=== PATIENT | male | born 1980 | race African-American/Black ===

== ENCOUNTER 2023-11-01 05:15 | Inpatient (IN) | payer MEDICAID, SELFPAY ==
[2023-11-01] MEDS: Ondansetron 4 MG/2 ML VIAL (05:35)
--- NOTE | 2023-11-01 06:42 | NUR.NOTE ---
Nursing Note: See downtime paperwork
--- NOTE | 2023-11-01 06:42 | NUR.NOTE ---
Nursing Note: See downtime paperwork
[2023-11-01 06:47] LABS: BUN 53 mg/dL (7-18); Calcium 10.4 mg/dL (8.5-10.1); Glucose 141 mg/dL (74-106)
[2023-11-01 06:48] LABS: Albumin 4.9 g/dL (3.4-5.0); Alkaline Phosphatase 116 U/L (46-116); Bilirubin, Total 0.9 mg/dL (0.2-1.0); CREATININE 7.4 mg/dL (0.70-1.30); Estimated GFR 8.78 (mL/min/1.73m2); Total Protein 11.3 g/dL (6.4-8.2)
[2023-11-01 06:49] LABS: ALT 30 U/L (16-63); AST 30 U/L (15-37); Anion Gap 14.7 mmol/L (3-11); CO2 29.3 mmol/L (21.0-32.0); Chloride 92 mmol/L (98-107); Lipase 36 U/L (16-77); Magnesium 2.7 mg/dL (1.8-2.4); Potassium 4.1 mmol/L (3.5-5.1); Sodium 136 mmol/L (136-145)
[2023-11-01 06:51] LABS: HCT 53.5 % (40.0-50.0); RBC 7.43 10^6/uL (4.36-5.78); WBC 9.87 10^3/uL (4.4-10.8)
[2023-11-01 06:52] LABS: HGB 17.9 g/dL (13.5-17.5); MCH 24.1 pg (27.0-33.0); MCHC 33.5 % (32.0-36.0); MCV 72 fL (80-95); Platelet Count 350 10^3/uL (130-400); RDW 17.5 % (11.8-14.1); RDW-SD 38.9 fL
[2023-11-01 06:53] LABS: Abs Immature Grans 0.05 10^3/uL (0.0-0.06); Absolute Basophil Count 0.07 10^3/uL (0.0-0.2); Absolute Eosinophil Count 0.01 10^3/uL (0.0-0.7); Absolute Lymphocyte Count 3.38 10^3/uL (1.2-3.4); Absolute Monocyte Count 1.16 10^3/uL (0.1-0.8); Basophils % 0.7; Eosinophils % 0.1; Immature Grans % 0.5; Lymphocytes % 34.2; MPV 9.5 fL (8.0-11.0); Monocytes % 11.8; Neutrophils % 52.7
[2023-11-01 06:54] LABS: Diff Comment RBC Morph Reviewed; Microcytosis 2+
--- NOTE | 2023-11-01 07:03 | ED.GENADUL_ITS ---
HPI General Date/Time Provider Initiated Documentation: 11/01/23 06:38 . HPI Narrative: 43-year-old -[place]inames[place] male with a past medical history of hypertension for which he used to take losartan, as well as bipolar, and other mental health problems who states he has not taken any of his medications for over a year, who presents today for vomiting and dehydration. Initially the patient was seen on downtime, please refer to downtime documentation. Patient's history appears to be somewhat inconsistent, and he is stating different things to nurses and myself. However to me he states that about a week ago he saw some friends and subsequently did crack and meth, and since then he has been vomiting multiple times every day. He denies any blood in his vomitus. He denies any diarrhea. He states that he has not been able to keep anything down for the last few days. He has not been able to drink or eat at all. He admits to occasional abdominal cramping, but no patent. He does state that he drinks occasionally, but did not drink at all for the few days prior to this episode of drugs. He also states that he usually does not do drugs. Additionally the patient states that once in [place] he was admitted to the hospital for being very dehydrated and having some kidney problems that got better he denies any other complaints. He denies any other modifying factors. He states that he has been urinating, but it has been less than normal. He is not able to give additional specifics. Review of Systems All systems reviewed & are unremarkable except as noted in HPI and below Exam Narrative Exam Narrative: 1.Const: Well-nourished, Well-developed, appearing stated age 2.Eyes: PERRL, no conjunctival injection, and symmetrical lids. 3.ENT: Atraumatic external nose and ears. Notably dry MM. Neck: Symmetric, trachea midline, No thyromegaly. 4.CVS: +S1/S2, No murmurs or gallops. Peripheral pulses 2+ and equal in all extremities. Brisk capillary refill in all extremities. 5.RESP: Unlabored respiratory effort. Clear to auscultation bilaterally. No wheezes rales or rhonchi 6.GI: Soft, Nontender/Nondistended, No hepatosplenomegaly. No guarding or rebound. 7.MSK: Normocephalic/Atraumatic, Extremities w/o deformity or ttp No cyanosis or clubbing, Normal movement of all extremities 8.Skin: Warm, Dry. No rashes or lesions. 9.Neuro: bit sharpener II-XII grossly intact. Sensation grossly intact, no focal neurologic deficits. 10.Psych: (AAO) x3. Appropriate mood and affect Course Lab/Test Results Lab/Test Results: Laboratory Tests Range/Units 11/01/23 05:30 WBC (4.4-10.8) 10^3/uL 9.87 RBC (4.36-5.78) 10^6/uL 7.43 H Hgb (13.5-17.5) g/dL 17.9 H Hct (40.0-50.0) % 53.5 H MCV (80-95) fL 72 L MCH (27.0-33.0) pg 24.1 L MCHC (32.0-36.0) % 33.5 RDW (11.8-14.1) % 17.5 H Plt Count (130-400) 10^3/uL 350 MPV (8.0-11.0) fL 9.5 Immature Gran % 0.5 Neutrophils % 52.7 Lymphocytes % 34.2 Monocytes % 11.8 Eosinophils % 0.1 Basophils % 0.7 Nucleated RBC % (0.0-0.3) % 0.0 Absolute Neutrophils (1.2-6.7) 10^3/uL 5.20 Absolute Lymphocytes (1.2-3.4) 10^3/uL 3.38 Absolute Monocytes (0.1-0.8) 10^3/uL 1.16 H Absolute Eosinophils (0.0-0.7) 10^3/uL 0.01 Absolute Basophils (0.0-0.2) 10^3/uL 0.07 RBC Morphology See Below Microcytosis 2+ Sodium (136-145) mmol/L 136 Potassium (3.5-5.1) mmol/L 4.1 Chloride (98-107) mmol/L 92 L Carbon Dioxide (21.0-32.0) mmol/L 29.3 Anion Gap (3-11) mmol/L 14.7 H BUN (7-18) mg/dL 53 H Creatinine (0.70-1.30) mg/dL 7.4 H* Est GFR (CKD-EPI 2020) (mL/min/1.73m2) 8.78 Glucose (74-106) mg/dL 141 H Calcium (8.5-10.1) mg/dL 10.4 H Magnesium (1.8-2.4) mg/dL 2.7 H Total Bilirubin (0.2-1.0) mg/dL 0.9 AST (15-37) U/L 30 ALT (16-63) U/L 30 Alkaline Phosphatase (46-116) U/L 116 Total Protein (6.4-8.2) g/dL 11.3 H Albumin (3.4-5.0) g/dL 4.9 Lipase (16-77) U/L 36 Medical Decision Making 43-year-old -[place]inames[place] male with a past medical history of hypertension for which he used to take losartan, as well as bipolar, and other mental health problems who states he has not taken any of his medications for over a year, who presents today for vomiting and dehydration. Initially the patient was seen on downtime, please refer to downtime documentation. Patient's history appears to be somewhat inconsistent, and he is stating different things to nurses and myself. However to me he states that about a week ago he saw some friends and subsequently did crack and meth, and since then he has been vomiting multiple times every day. He denies any blood in his vomitus. He denies any diarrhea. He states that he has not been able to keep anything down for the last few days. He has not been able to drink or eat at all. He admits to occasional abdominal cramping, but no patent. He does state that he drinks occasionally, but did not drink at all for the few days prior to this episode of drugs. He also states that he usually does not do drugs. Additionally the patient states that once in [place] he was admitted to the hospital for being very dehydrated and having some kidney problems that got better he denies any other complaints. He denies any other modifying factors. He states that he has been urinating, but it has been less than normal. He is not able to give additional specifics. Physical exam demonstrates a tachycardic male, notably dry mucous membranes. Concern for dehydration, gastroenteritis, pancreatitis. Will rehydrate, monitor closely and reassess. 7:12 AM Patient received a liter of normal saline from EMS originally, and we have added an additional liter of lactated Ringer's. Patient is currently making urine. Laboratory workup demonstrates hemoglobin of 17.9 which is likely from hemoconcentration, electrolytes are normal, renal function demonstrates an elevated creatinine at 7.4, BUN of 53. Anion gap of 14.7. Glucose normal. Magnesium slightly high at 2.7. CK was ordered and this is 876, no evidence of rhabdo. Lipase normal. Patient is tolerating p.o. and has been able to drink 3 cups of fluid, he is urinated about 76 mL of bibiana-colored urine. No casts are visually appreciable. Pending urinalysis. I did contact hospitalist for admission for continued hydration. Dr. Talley does request a CT scan of the abdomen prior to admission. This will be ordered. Patient will be signed out to my colleague Dr. Hutchins for follow-up on CT imaging. We will add 1/3 L of fluids/lactated Ringer's. Quality:SDOH Health Related Social Needs: No Data to Display PFSH All Active Problems (Updated 11/01/23 @ 07:27 by Inderjit Arthur DO) Acute dehydration (Acute) Acute kidney injury (Acute) Social History Smoking risk assessment performed?: No Additional Social history: see downtime note Discharge Plan Discharge Details Chief Complaint: Nausea/Vomit/Diar Clinical Impression: Acute kidney injury, Acute dehydration ED Provider: Inderjit Arthur
--- NOTE | 2023-11-01 07:15 | DI.CT_ITS ---
Exam(s) CT ABDOMEN PELVIS WO EXAM: CT ABDOMEN PELVIS WO CLINICAL HISTORY: vomiting, renal failure. TECHNIQUE: Imaging Protocol: Axial computed tomography images with coronal and sagittal reformatted images were created and reviewed CONTRAST MATERIAL: Intravenous: none Oral: None COMPARISON: No exams were available for comparison FINDINGS: VISUALIZED LUNG BASES: No nodules nor pleural effusions evident. ABDOMEN: There is no ascites. LIVER: There are no obvious focal hepatic lesions evident of this noninfused study. GALLBLADDER/BILIARY: No obvious gallbladder pathology. CBD is not dilated. PANCREAS: No evidence of pancreatic mass nor dilatation of the pancreatic duct. SPLEEN: Spleen is not enlarged. No obvious intrasplenic lesions. Single tiny calcified granuloma in the spleen noted. ADRENALS: There are no significant adrenal masses. KIDNEYS:Both kidneys exhibit normal size. There are small 1-2 millimeter calculi seen in each kidney lower pole regions. There are no radiopaque calculi seen in the nondilated ureters and there is no hydronephrosis. No radiopaque calculi seen in the almost collapsed bladder.. ABDOMINAL AORTA: Abdominal aorta is not enlarged. LYMPH NODES: There is no retroperitoneal nor paraaortic adenopathy. ABDOMINAL WALL: No evidence of significant anterior abdominal wall nor inguinal hernia. GI: There is no evidence of bowel obstruction, free air, nor abscess. PELVIS: LYMPH NODES: There is no intrapelvic nor inguinal adenopathy. GI: No evidence of appendicitis.No evidence of sigmoid diverticulitis. URINARY BLADDER: No calculi nor obvious masses evident REPRODUCTIVE: Prostate size normal. Seminal vesicles unremarkable. OSSEOUS: No significant osseous lesions. No fractures IMPRESSION: 1. Bilateral nonobstructive nephrolithiasis. There are punctate calculi seen in the lower pole calic es of both kidneys. No hydronephrosis nor hydroureter. 2. No evidence of bowel obstruction, free air, nor abscess. Called by myself to ER for RADIATION DOSE DELIVERED: 571.89mGy.cm Total DLP DATA REPOSITORY: All CT scans at this facility are submitted to the National Radiology Data Registry (NRDR) Dose Index Registry (DIR) with the [employer] (ACR). RADIATION OPTIMIZATION: All CT scans at this facility use at least one of these dose optimization te chniques: automated exposure control; mA and/or kV adjustment per patient size (includes targeted exa ms where dose is matched to clinical indication); or iterative reconstruction.
[2023-11-01 07:16] VITALS: BP 168/102; PULSE 101; RESP 22; TEMP 36.4; O2SAT 100
[2023-11-01 07:18] LABS: Creatine Kinase 876 U/L (39-308)
[2023-11-01] MEDS: Lactated Ringers 1,000 ML 1000 ML IV (07:26)
[2023-11-01 07:34] LABS: Bilirubin Small (Negative); Blood Moderate (Negative); Clarity Cloudy (Clear); Glucose Negative (Negative); Ketones Trace mg/dL (Negative); Leukocyte Esterase Negative (Negative); Nitrite Negative (Negative); Specific Gravity >= 1.030 (1.005-1.025); Urobilinogen 0.2 mg/dL (Up to 0.2)
[2023-11-01 07:43] LABS: Epithelial Cells Rare HPF (Negative); WBC 0-2 HPF (0-5)
[2023-11-01 07:44] LABS: Bacteria Moderate HPF (Negative); Crystals Negative HPF (Negative); Mucus Moderate (Negative)
[2023-11-01 07:47] LABS: C & S Indicated? Yes
[2023-11-01] MEDS: Tamsulosin 0.4 MG CAPCR PO (07:51)
[2023-11-01 07:52] LABS: *AMPHETAMINES SCREEN URINE Negative (Negative); *BARBITURATES SCREEN URINE Negative (Negative); *BENZODIAZEPINES SCREEN URINE Negative (Negative); Cannabinoids THC Positive (Negative); Cocaine Screen,Urine Positive (Negative); METHADONE URINE SCREEN Negative (Negative); OPIATES URINE SCREEN Negative (Negative)
[2023-11-01 07:53] LABS: Tricyclic Antidepressants Negative (Negative)
--- NOTE | 2023-11-01 08:58 | HPE_ITS ---
Date of service: 11/01/23 Time of Service: 08:58 [facility] All Active Problems (Updated 11/01/23 @ 07:27 by Inderjit Arthur DO) Acute dehydration (Acute) Acute kidney injury (Acute) Social History Smoking risk assessment performed?: No Additional Social history: see downtime note Results Labs 11/01/23 05:30 11/01/23 05:30 Labs: Laboratory Results - last 24 hr 11/01/23 11/01/23 05:30 07:15 WBC 9.87 RBC 7.43 H Hgb 17.9 H Hct 53.5 H MCV 72 L MCH 24.1 L MCHC 33.5 RDW 17.5 H Plt Count 350 MPV 9.5 Immature Gran % 0.5 Neutrophils % 52.7 Lymphocytes % 34.2 Monocytes % 11.8 Eosinophils % 0.1 Basophils % 0.7 Nucleated RBC % 0.0 Absolute Neutrophils 5.20 Absolute Lymphocytes 3.38 Absolute Monocytes 1.16 H Absolute Eosinophils 0.01 Absolute Basophils 0.07 RBC Morphology See Below Microcytosis 2+ Sodium 136 Potassium 4.1 Chloride 92 L Carbon Dioxide 29.3 Anion Gap 14.7 H BUN 53 H Creatinine 7.4 H* Est GFR (CKD-EPI 2020) 8.78 Glucose 141 H Calcium 10.4 H Magnesium 2.7 H Total Bilirubin 0.9 AST 30 ALT 30 Alkaline Phosphatase 116 Creatine Kinase 876 H Total Protein 11.3 H Albumin 4.9 Lipase 36 Urine Color Yellow Urine Clarity Cloudy Urine pH 5.0 Ur Specific [place] >= 1.030 H Urine Protein 100 H Urine Ketones Trace H Urine Blood Moderate H Urine Nitrite Negative Urine Bilirubin Small H Urine Urobilinogen 0.2 Ur Leukocyte Esterase Negative Urine RBC 10-20 H Urine WBC 0-2 Ur Epithelial Cells Rare Urine Crystals Negative Urine Bacteria Moderate Urine Casts Urine Mucus Moderate Ur Culture Indicated? Yes Urine Glucose Negative Urine Opiates Screen Negative Urine Methadone Screen Negative Ur Barbiturates Screen Negative Ur Tricyclics Screen Negative Ur Amphetamines Screen Negative U Benzodiazepines Scrn Negative Urine Cocaine Screen Positive A Ur THC Screen Positive A Last Vital Signs Temp 36.4 C L 11/01/23 07:16 Pulse 101 H 11/01/23 07:16 Resp 22 11/01/23 07:16 BP 168/102 H 02/08/24 07:16 Pulse Ox 100 11/01/23 07:16
[2023-11-01 09:11] LABS: COVID-19 PCR Negative (Negative); Influenza A PCR Negative (Negative); Influenza B PCR Negative (Negative); RSV PCR Negative (Negative)
[2023-11-01 09:17] LABS: Source Nasopharynx
[2023-11-01 10:01] VITALS: BP 156/86; PULSE 80; RESP 12; TEMP 36.9; O2SAT 99
[2023-11-01 10:30] VITALS: BP 156/86; PULSE 80; RESP 12; TEMP 36.9; O2SAT 99
[2023-11-01] MEDS: Heparin 5,000 UNITS/ML VIAL 5000 UNITS SC ×2 (11:26→17:46)
[2023-11-01] MEDS: Lactated Ringers 1,000 ML 250 ML IV ×3 (11:33→23:41)
[2023-11-01] MEDS: Normal Saline Flush 10 ML SYR IVP ×2 (11:33→20:08)
[2023-11-01 12:37] LABS: Anion Gap 10.6 mmol/L (3-11); BUN 45 mg/dL (7-18); CO2 28.4 mmol/L (21.0-32.0); Calcium 9.4 mg/dL (8.5-10.1); Chloride 98 mmol/L (98-107); Estimated GFR 17.84 (mL/min/1.73m2); Glucose 156 mg/dL (74-106); Potassium 3.6 mmol/L (3.5-5.1); Sodium 137 mmol/L (136-145)
[2023-11-01 12:39] LABS: CREATININE 4.1 mg/dL (0.70-1.30)
--- NOTE | 2023-11-01 14:00 | UCONE_ITS ---
Date of service: 11/01/23 Time of Service: 15:48 Assessment and Plan Assessment and plan (1) Acute kidney injury: Status: Acute (2) Kidney stones: Assessment and plan: I do not believe his kidney stones are causing any of his acute renal insufficiency, but they certainly should be watched over time. I suspect his biggest risk factor for developing the stones are his recurrent episodes of dehydration. The microscopic hematuria identified when he was in the emergency department certainly could be related to his stones or to his dehydration. I do not believe he requires any specific workup right now. I would recommend that we follow him in the office after discharge. We would plan to recheck a urinalysis to make sure the hematuria has resolved. We would also make arrangements to follow his known kidney stones with a renal ultrasound in the office. History of Present Illness History of Present Illness Chief Complaint: Kidney stones Narrative: This is a 43-year-old gentleman who was admitted through the emergency room earlier this morning with dehydration and an elevated serum creatinine. The patient tells me that he had a previous episode of dehydration requiring hospitalization when he was living back in [place] in 2017. His renal function improved with IV hydration alone. He is now living in [place] and he admits to taking some street drugs recently. He then developed nausea and vomiting and was unable to keep any fluid or food down. When he presented to the emergency department, his serum creatinine was over 7. He does have a history of hypertension but no known chronic renal disease. He has never had any type of renal surgery. He has not seen any gross hematuria. He has no known history of urinary tract infections. At the time of his admission, a noncontrast CT of the abdomen and pelvis was obtained. Nonobstructing kidney stones were identified. Review of Systems Narrative: No fevers or chills No vision change or dysphasia No diabetes or thyroid dysfunction No shortness of breath, cough or hemoptysis No chest pain or palpitations No hepatitis, ulcers, jaundice, diarrhea or constipation Bipolar disorder. No seizures, strokes or peripheral neuropathy No bleeding disorders or anemia No gout PFSH All Active Problems (Updated 11/03/23 @ 00:01 by NABILA SUERO) Acute dehydration (Acute) Acute kidney injury (Acute) Medical History (Updated 11/03/23 @ 00:01 by NABILA SUERO) Kidney stones Social History (Reviewed 11/01/23 @ 07:09 by JAZ Batista Smoking/Tobacco Use Status: Current every day Smoking risk assessment performed?: Yes Housing: other Additional Social history: see downtime note Exam Narrative Exam Narrative: He appears comfortable His vital signs are documented elsewhere His abdomen is soft with no mass. There is no CVA tenderness He is awake and alert His urinalysis at the time of admission showed very concentrated urine with microscopic hematuria Results Last Vital Signs Temp 36.9 C 11/01/23 10:30 Pulse 80 11/01/23 10:30 Resp 12 11/01/23 10:30 BP 156/86 H 11/01/23 10:30 Pulse Ox 99 11/01/23 10:30 Labs 11/02/23 06:30 11/02/23 06:30 Labs: Laboratory Results - last 24 hr 11/01/23 11/01/23 11/01/23 05:30 07:15 07:57 WBC 9.87 RBC 7.43 H Hgb 17.9 H Hct 53.5 H MCV 72 L MCH 24.1 L MCHC 33.5 RDW 17.5 H Plt Count 350 MPV 9.5 Immature Gran % 0.5 Neutrophils % 52.7 Lymphocytes % 34.2 Monocytes % 11.8 Eosinophils % 0.1 Basophils % 0.7 Nucleated RBC % 0.0 Absolute Neutrophils 5.20 Absolute Lymphocytes 3.38 Absolute Monocytes 1.16 H Absolute Eosinophils 0.01 Absolute Basophils 0.07 RBC Morphology See Below Microcytosis 2+ Sodium 136 Potassium 4.1 Chloride 92 L Carbon Dioxide 29.3 Anion Gap 14.7 H BUN 53 H Creatinine 7.4 H* Est GFR (CKD-EPI 2020) 8.78 Glucose 141 H Calcium 10.4 H Magnesium 2.7 H Total Bilirubin 0.9 AST 30 ALT 30 Alkaline Phosphatase 116 Creatine Kinase 876 H Total Protein 11.3 H Albumin 4.9 Lipase 36 Urine Color Yellow Urine Clarity Cloudy Urine pH 5.0 Ur Specific [place] >= 1.030 H Urine Protein 100 H Urine Ketones Trace H Urine Blood Moderate H Urine Nitrite Negative Urine Bilirubin Small H Urine Urobilinogen 0.2 Ur Leukocyte Esterase Negative Urine RBC 10-20 H Urine WBC 0-2 Ur Epithelial Cells Rare Urine Crystals Negative Urine Bacteria Moderate Urine Casts Urine Mucus Moderate Ur Culture Indicated? Yes Urine Glucose Negative Urine Opiates Screen Negative Urine Methadone Screen Negative Ur Barbiturates Screen Negative Ur Tricyclics Screen Negative Ur Amphetamines Screen Negative U Benzodiazepines Scrn Negative Urine Cocaine Screen Positive A Ur THC Screen Positive A COVID-19 Source Nasopharynx SARS-CoV-2 (PCR) Negative Influenza Type A (PCR) Negative Influenza Type B (PCR) Negative RSV (PCR) Negative 11/01/23 12:18 WBC RBC Hgb Hct MCV MCH MCHC RDW Plt Count MPV Immature Gran % Neutrophils % Lymphocytes % Monocytes % Eosinophils % Basophils % Nucleated RBC % Absolute Neutrophils Absolute Lymphocytes Absolute Monocytes Absolute Eosinophils Absolute Basophils RBC Morphology Microcytosis Sodium 137 Potassium 3.6 Chloride 98 Carbon Dioxide 28.4 Anion Gap 10.6 BUN 45 H Creatinine 4.1 H* D Est GFR (CKD-EPI 2020) 17.84 Glucose 156 H Calcium 9.4 Magnesium Total Bilirubin AST ALT Alkaline Phosphatase Creatine Kinase Total Protein Albumin Lipase Urine Color Urine Clarity Urine pH Ur Specific [place] Urine Protein Urine Ketones Urine Blood Urine Nitrite Urine Bilirubin Urine Urobilinogen Ur Leukocyte Esterase Urine RBC Urine WBC Ur Epithelial Cells Urine Crystals Urine Bacteria Urine Casts Urine Mucus Ur Culture Indicated? Urine Glucose Urine Opiates Screen Urine Methadone Screen Ur Barbiturates Screen Ur Tricyclics Screen Ur Amphetamines Screen U Benzodiazepines Scrn Urine Cocaine Screen Ur THC Screen COVID-19 Source SARS-CoV-2 (PCR) Influenza Type A (PCR) Influenza Type B (PCR) RSV (PCR) Imaging Abdomen CT scan report/results: image reviewed Additional studies: His serum creatinine is improving with aggressive rehydration. Imaging Studies: I reviewed his CT of the abdomen and pelvis. I do not see any sign of hydronephrosis. He does have nonobstructing bilateral kidney stones. His renal parenchyma appears well-preserved.
[2023-11-01 15:40] VITALS: BP 133/84; PULSE 77; RESP 17; TEMP 36.7; O2SAT 98
--- NOTE | 2023-11-01 19:06 | W.PM.HP.N ---
Date of service: 11/01/23 Time of Service: 19:07 Assessment and Plan Assessment and plan (1) Acute dehydration: Status: Acute Assessment and plan: N/V has subsided Continue IVF Ondansetron PRN (2) Kidney stones: Status: Chronic Assessment and plan: Seen by Dr Yates - not acute, will follow up out patient (3) Acute kidney injury: Status: Acute Assessment and plan: Improving with IVF Cr down to 4.1 form 7.4 check again at 2030h Continue IVF - LR 250ml/h History of Present Illness History of Present Illness Chief Complaint: Nausea, vomiting Narrative: This is a 43-year-old -[place] male with a past medical history significant for but not limited to hypertension for which he used to take losartan, bipolar, and other mental health problems presented to the [facility] ED for evaluation of vomiting and dehydration. He reported to the ED provider he saw some friends about a week ago and subsequently did crack and meth, and since then he has been vomiting multiple times every day. He denied any blood in his vomitus. He denied any diarrhea. He stated he has not been able to keep anything down for the last few days. Denied alcohol or other drugs. He reported in the past he was dehydrated, hospitalized, had some kidney problems and everything improved with hydration. He reported he has been urinating, but it has been less than normal. Laboratory workup demonstrates hemoglobin of 17.9 which is likely from hemoconcentration, electrolytes are normal, renal function demonstrates an elevated creatinine at 7.4, BUN of 53. Anion gap of 14.7. Glucose normal. Magnesium slightly high at 2.7. CK was ordered and this is 876, no evidence of rhabdo. Lipase normal. Patient is tolerated PO fluids. CT of abd/pelvis: bilateral nonobstructive nephrolithiasis, there are punctate calculi seen in the lower pole calices of both kidneys. No hydronephrosis nor hydroureter. No evidence of bowel obstruction, free air, or abscess. Patient was admitted to the medical floor for further testing and continued hydration and treatment. Patient is a full code. Review of Systems All systems reviewed & are unremarkable except as noted in HPI and below PFSH All Active Problems (Updated 11/01/23 @ 16:23 by Tito Yates MD) Kidney stones (Chronic) Acute dehydration (Acute) Acute kidney injury (Acute) Social History Smoking/Tobacco Use Status: Current every day Smoking risk assessment performed?: Yes Housing: other Additional Social history: see downtime note Meds Allergies and Home Medications Allergies Allergy/AdvReac Type Severity Reaction Status Date / Time lisinopril Allergy Severe Swelling/Ed Unverified 11/01/23 09:24 reagan Home Medications Medication Instructions Recorded Confirmed Type Unknown [No Known Home Meds] 11/01/23 11/01/23 History Exam Narrative Exam Narrative: 1.Const: Well-nourished, Well-developed, appearing stated age 2.Eyes: PERRL, no conjunctival injection, and symmetrical lids. 3.ENT: Atraumatic external nose and ears. Notably dry MM. Neck: Symmetric, trachea midline, No thyromegaly. 4.CVS: +S1/S2, No murmurs or gallops. Peripheral pulses 2+ and equal in all extremities. Brisk capillary refill in all extremities. 5.RESP: Unlabored respiratory effort. Clear to auscultation bilaterally. No wheezes rales or rhonchi 6.GI: Soft, Nontender/Nondistended, No hepatosplenomegaly. No guarding or rebound. 7.MSK: Normocephalic/Atraumatic, Extremities w/o deformity or ttp No cyanosis or clubbing, Normal movement of all extremities 8.Skin: Warm, Dry. No rashes or lesions. 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 Sensation grossly intact, no focal neurologic deficits. 10.Psych: (AAO) x3. Appropriate mood and affect Results Labs 11/01/23 05:30 11/01/23 12:18 Labs: Laboratory Results - last 24 hr 11/01/23 11/01/23 11/01/23 05:30 07:15 07:57 WBC 9.87 RBC 7.43 H Hgb 17.9 H Hct 53.5 H MCV 72 L MCH 24.1 L MCHC 33.5 RDW 17.5 H Plt Count 350 MPV 9.5 Immature Gran % 0.5 Neutrophils % 52.7 Lymphocytes % 34.2 Monocytes % 11.8 Eosinophils % 0.1 Basophils % 0.7 Nucleated RBC % 0.0 Absolute Neutrophils 5.20 Absolute Lymphocytes 3.38 Absolute Monocytes 1.16 H Absolute Eosinophils 0.01 Absolute Basophils 0.07 RBC Morphology See Below Microcytosis 2+ Sodium 136 Potassium 4.1 Chloride 92 L Carbon Dioxide 29.3 Anion Gap 14.7 H BUN 53 H Creatinine 7.4 H* Est GFR (CKD-EPI 2020) 8.78 Glucose 141 H Calcium 10.4 H Magnesium 2.7 H Total Bilirubin 0.9 AST 30 ALT 30 Alkaline Phosphatase 116 Creatine Kinase 876 H Total Protein 11.3 H Albumin 4.9 Lipase 36 Urine Color Yellow Urine Clarity Cloudy Urine pH 5.0 Ur Specific [place] >= 1.030 H Urine Protein 100 H Urine Ketones Trace H Urine Blood Moderate H Urine Nitrite Negative Urine Bilirubin Small H Urine Urobilinogen 0.2 Ur Leukocyte Esterase Negative Urine RBC 10-20 H Urine WBC 0-2 Ur Epithelial Cells Rare Urine Crystals Negative Urine Bacteria Moderate Urine Casts Urine Mucus Moderate Ur Culture Indicated? Yes Urine Glucose Negative Urine Opiates Screen Negative Urine Methadone Screen Negative Ur Barbiturates Screen Negative Ur Tricyclics Screen Negative Ur Amphetamines Screen Negative U Benzodiazepines Scrn Negative Urine Cocaine Screen Positive A Ur THC Screen Positive A COVID-19 Source Nasopharynx SARS-CoV-2 (PCR) Negative Influenza Type A (PCR) Negative Influenza Type B (PCR) Negative RSV (PCR) Negative 11/01/23 12:18 WBC RBC Hgb Hct MCV MCH MCHC RDW Plt Count MPV Immature Gran % Neutrophils % Lymphocytes % Monocytes % Eosinophils % Basophils % Nucleated RBC % Absolute Neutrophils Absolute Lymphocytes Absolute Monocytes Absolute Eosinophils Absolute Basophils RBC Morphology Microcytosis Sodium 137 Potassium 3.6 Chloride 98 Carbon Dioxide 28.4 Anion Gap 10.6 BUN 45 H Creatinine 4.1 H* D Est GFR (CKD-EPI 2020) 17.84 Glucose 156 H Calcium 9.4 Magnesium Total Bilirubin AST ALT Alkaline Phosphatase Creatine Kinase Total Protein Albumin Lipase Urine Color Urine Clarity Urine pH Ur Specific [place] Urine Protein Urine Ketones Urine Blood Urine Nitrite Urine Bilirubin Urine Urobilinogen Ur Leukocyte Esterase Urine RBC Urine WBC Ur Epithelial Cells Urine Crystals Urine Bacteria Urine Casts Urine Mucus Ur Culture Indicated? Urine Glucose Urine Opiates Screen Urine Methadone Screen Ur Barbiturates Screen Ur Tricyclics Screen Ur Amphetamines Screen U Benzodiazepines Scrn Urine Cocaine Screen Ur THC Screen COVID-19 Source SARS-CoV-2 (PCR) Influenza Type A (PCR) Influenza Type B (PCR) RSV (PCR) Last Vital Signs Temp 36.7 C 11/01/23 15:40 Pulse 77 11/01/23 15:40 Resp 17 11/01/23 15:40 BP 133/84 11/01/23 15:40 Pulse Ox 98 11/01/23 15:40 Time Spent Time spent with Patient: 55-74 minutes Time was spent: preparing to see the patient(eg.review tests), obtaining and/or reviewing separately otained hiistory, ordering medications,tests, procedures, referring, communicating with other health healthcare administrator, indepentently interpreting results, counseling the patient and care coordination
[2023-11-01 20:09] VITALS: BP 127/77; PULSE 83; RESP 18; TEMP 36.6; O2SAT 93
[2023-11-01 20:52] LABS: Anion Gap 7.1 mmol/L (3-11); BUN 36 mg/dL (7-18); CO2 30.9 mmol/L (21.0-32.0); CREATININE 2.3 mg/dL (0.70-1.30); Calcium 8.2 mg/dL (8.5-10.1); Chloride 100 mmol/L (98-107); Estimated GFR 35.69 (mL/min/1.73m2); Glucose 108 mg/dL (74-106); Potassium 3.6 mmol/L (3.5-5.1); Sodium 138 mmol/L (136-145)
[2023-11-02 00:27] VITALS: BP 116/81; PULSE 60; RESP 18; TEMP 36.6; O2SAT 99
[2023-11-02] MEDS: Heparin 5,000 UNITS/ML VIAL 5000 UNITS SC ×2 (03:01→10:56)
[2023-11-02 03:24] VITALS: BP 122/77; PULSE 67; RESP 18; TEMP 35.6; O2SAT 97
[2023-11-02] MEDS: Lactated Ringers 1,000 ML 250 ML IV ×2 (03:45→08:10)
[2023-11-02 07:42] LABS: Abs Immature Grans 0.01 10^3/uL (0.0-0.06); Absolute Basophil Count 0.03 10^3/uL (0.0-0.2); Absolute Eosinophil Count 0.07 10^3/uL (0.0-0.7); Absolute Lymphocyte Count 2.16 10^3/uL (1.2-3.4); Absolute Monocyte Count 0.61 10^3/uL (0.1-0.8); Absolute Neutrophil Count 2.15 10^3/uL (1.2-6.7); Basophils % 0.6; Eosinophils % 1.4; HCT 34.7 % (40.0-50.0); Immature Grans % 0.2; Lymphocytes % 42.9; MCH 24.1 pg (27.0-33.0); MCHC 33.1 % (32.0-36.0); MCV 73 fL (80-95); MPV 10.3 fL (8.0-11.0); Monocytes % 12.1; Neutrophils % 42.8; Platelet Count 212 10^3/uL (130-400); RBC 4.77 10^6/uL (4.36-5.78); RDW 15.5 % (11.8-14.1); RDW-SD 40.1 fL; WBC 5.03 10^3/uL (4.4-10.8)
[2023-11-02 07:49] LABS: HGB 11.5 g/dL (13.5-17.5)
[2023-11-02 07:54] LABS: Iron 140 ug/dL (65-175); Total Iron Binding Capacity 170 ug/dL (250-450); Transferrin Sat 82 % (20-55)
[2023-11-02 08:02] LABS: Diff Comment RBC Morph Reviewed; Microcytosis 2+
[2023-11-02 08:09] VITALS: BP 137/95; PULSE 66; RESP 20; TEMP 36; O2SAT 97
[2023-11-02 08:29] LABS: Anion Gap 2.6 mmol/L (3-11); BUN 21 mg/dL (7-18); CO2 34.4 mmol/L (21.0-32.0); CREATININE 1.3 mg/dL (0.70-1.30); Calcium 8.7 mg/dL (8.5-10.1); Chloride 104 mmol/L (98-107); Estimated GFR 70.78 (mL/min/1.73m2); Ferritin 172 ng/mL (26-388); Glucose 98 mg/dL (74-106); Magnesium 1.7 mg/dL (1.8-2.4); Sodium 141 mmol/L (136-145); Vitamin B12 902 pg/mL (193-986)
[2023-11-02 08:51] VITALS: BP 147/90; PULSE 69; RESP 17; TEMP 36.2; O2SAT 99
[2023-11-02] MEDS: Normal Saline Flush 10 ML SYR IVP (10:56)
[2023-11-02] MEDS: MAGNESIUM SULFATE 2 GM/50 ML BAG IVPB (10:56)
--- NOTE | 2023-11-02 11:26 | DSE_ITS ---
Date of service: 11/02/23 Time of Service: 11:26 DS: Diagnosis Discharge Diagnosis (1) Acute dehydration: Status: Acute (2) Kidney stones: Status: Chronic (3) Acute kidney injury: Status: Acute Discharge Plan Disposition Patient Disposition: Home Condition: Improving Discharge Details Reason For Visit: TAN,Nausea and Vomiting,Nephrolithiasis Admit Date/Time: 11/01/23 07:56 Admit Provider: Tri Talely Attending Provider: Tri Talley Primary Care Provider: Unknown,Unknown Hospital Course Hospital Course: This is a 43-year-old -[place] male with a past medical history significant for but not limited to hypertension for which he used to take losartan, bipolar, and other mental health problems presented to the [facility] ED for evaluation of vomiting and dehydration. He reported to the ED provider he saw some friends about a week ago and subsequently did crack and meth, and since then he has been vomiting multiple times every day. He denied any blood in his vomitus. He denied any diarrhea. He stated he has not been able to keep anything down for the last few days. Denied alcohol or other drugs. He reported in the past he was dehydrated, hospitalized, had some kidney problems and everything improved with hydration. He reported he has been urinating, but it has been less than normal. Laboratory workup demonstrates hemoglobin of 17.9 which is likely from hemoconcentration, electrolytes were normal, renal function demonstrated an elevated creatinine at 7.4, BUN of 53. Anion gap of 14.7. Glucose normal. Magnesium slightly high at 2.7. CK was ordered and this is 876, no evidence of rhabdo. Lipase normal. Patient tolerated PO fluids. CT of abd/pelvis: bilateral nonobstructive nephrolithiasis, there are punctate calculi seen in the lower pole calices of both kidneys. No hydronephrosis nor hydroureter. No evidence of bowel obstruction, free air, or abscess. Patient was admitted to the medical floor for further testing and continued hydration and treatment. Patient is a full code. Patient was evaluated by Dr Yates, urology, and was found to have kiney stones that can be evaluated as outpatient. He did not think the kidney stones were causing his renal failure. Patient received large amount of IV fluids. Tolerating regular diet. The TAN resolved. He was discharged to home stable. It was recommended he stop using illegal drugs. He was told to be sure he was hydrated. . Home Meds and New Rx's Prescriptions: Continued No Known Home Meds Discharge Instructions Instructions: Dehydration (DC), Acute Kidney Injury (DC) Additional Instructions: Do not use cocaine or other drugs of abuse, illegal substances. Do not drink alcohol. Drink plenty of fluids. You want your urine to be pale yellow. Stand Alone Forms: Nursing Discharge Form Activity:: Activity as Tolerated Equipment/Supplies:: No Equipment Needed Diet:: As Tolerated Discharge Orders Discharge Orders: Discharge Order (Routine); Ordered 11/02/23 Ordered By: Kylie Nieto Discharge Data Discharge Date/Time-TO BE ENTERED AT DEPARTURE: 11/02/23 14:25 DS: Summary Time Spent with Patient providing and/or coordinating discharge services: Greater than 30 minutes Status at Discharge Functional status at discharge: independent ambulation Overall status at discharge: patient is back to baseline Mental Status: mental status grossly normal Speech and Movement: speech and movement normal Mood: congruent mood Affect: normal affect Quality:SDOH Health Related Social Needs: Health related social needs risk of homeless, material hardship, transpo insecurity, personal safety Exam Narrative Exam Narrative: 1.Const: Well-nourished, Well-developed, appearing stated age 2.Eyes: PERRL, no conjunctival injection, and symmetrical lids. 3.ENT: Atraumatic external nose and ears. Notably dry MM. Neck: Symmetric, trachea midline, No thyromegaly. 4.CVS: +S1/S2, No murmurs or gallops. Peripheral pulses 2+ and equal in all extremities. Brisk capillary refill in all extremities. 5.RESP: Unlabored respiratory effort. Clear to auscultation bilaterally. No wheezes rales or rhonchi 6.GI: Soft, Nontender/Nondistended, No hepatosplenomegaly. No guarding or rebound. 7.MSK: Normocephalic/Atraumatic, Extremities w/o deformity or ttp No cyanosis or clubbing, Normal movement of all extremities 8.Skin: Warm, Dry. No rashes or lesions. 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 Sensation grossly intact, no focal neurologic deficits. 10.Psych: (AAO) x3. Appropriate mood and affect Psych Mental Status: mental status grossly normal Speech and Movement: speech and movement normal Mood: congruent mood Affect: normal affect DS: Data Vitals/I&O Vitals and I&O: Vital Signs Temperature 36.2 C L 11/02/23 08:51 Temperature Source Tympanic 11/02/23 08:51 Pulse 69 11/02/23 08:51 Pulse Rhythm Regular 11/02/23 03:05 Respiratory Rate 17 11/02/23 08:51 Respiratory Effort Normal 11/02/23 03:05 Respiratory Depth Normal 11/02/23 03:05 Respiratory Pattern Normal 11/02/23 03:05 Blood Pressure 147/90 H 11/02/23 08:51 Pulse Oximetry 99 11/02/23 08:51 Oxygen Delivery Method Room Air 11/02/23 08:51 Oxygen Flow Rate 0 11/02/23 08:51 Pain Level 0 11/02/23 08:51 Comment see downtime note 11/01/23 07:13 Intake & Output 11/01/23 11/01/23 11/02/23 11:59 23:59 11:59 Intake Total 1000 / 3000 2000 / 3000 3175.833 / 3175.833 Output Total 500 / 800 300 / 300 Balance 1000 / 2200 1500 / 2200 2875.833 / 2875.833 Weight 61.518 kg Intake: IV 1000 / 3000 2000 / 3000 2695.833 / 2695.833 Oral 480 / 480 Output: Urine 500 / 800 300 / 300 Other: Urine Color Dark Elizabeth Light Elizabeth Yellow Urine Appearance Clear Clear Clear Urine Odor None None Stool Size Moderate Stool Characteristics Formed Emesis Description None Voiding Methods Urinal Urinal Toilet Data Completed and Pending Labs on day of discharge: Labs from last 24 hours 11/02/23 11/01/23 11/01/23 06:30 20:37 12:18 WBC 5.03 RBC 4.77 Hgb 11.5 L D Hct 34.7 L MCV 73 L MCH 24.1 L MCHC 33.1 RDW 15.5 H Plt Count 212 MPV 10.3 Immature Gran % 0.2 Neutrophils % 42.8 Lymphocytes % 42.9 Monocytes % 12.1 Eosinophils % 1.4 Basophils % 0.6 Nucleated RBC % 0.0 Absolute Neutrophils 2.15 Absolute Lymphocytes 2.16 Absolute Monocytes 0.61 Absolute Eosinophils 0.07 Absolute Basophils 0.03 RBC Morphology See Below Microcytosis 2+ Sodium 141 138 137 Potassium 4.0 3.6 3.6 Chloride 104 100 98 Carbon Dioxide 34.4 H 30.9 28.4 Anion Gap 2.6 L 7.1 10.6 BUN 21 H 36 H 45 H Creatinine 1.3 D 2.3 H D 4.1 H* D Est GFR (CKD-EPI 2020) 70.78 35.69 17.84 Glucose 98 108 H 156 H Calcium 8.7 8.2 L 9.4 Magnesium 1.7 L Iron 140 TIBC 170 L Transferrin % Sat 82 H Ferritin 172 Creatine Kinase Pending Vitamin B12 902 25-OH Vitamin D Total 53.0 Folate 12.0 11/01/23 07:15 Urine - Reflex from Ua Urine Culture - Pending Preliminary micro results at discharge 11/01/23 07:15 Urine Culture - Pending Urine - Reflex from Ua [facility] All Active Problems (Updated 11/01/23 @ 16:23 by Tito Yates MD) Kidney stones (Chronic) Acute dehydration (Acute) Acute kidney injury (Acute) Social History Smoking/Tobacco Use Status: Current every day Smoking risk assessment performed?: Yes Housing: other Additional Social history: see downtime note Time Spent with Patient Time Spent with Patient: 45-69 minutes Time was spent: preparing to see the patient(eg.review tests), ordering medications,tests, procedures, referring, communicating with other health child care attendant school, indepentently interpreting results, counseling the patient and care coordination
[2023-11-02 11:30] VITALS: BP 146/85; PULSE 64; RESP 16; TEMP 36.2; O2SAT 100
[2023-11-02 17:10] LABS: Creatine Kinase 651 U/L (39-308)
== END 2023-11-02 14:25 | disposition home or self-care (01) | DRG 684 ==
LOC: ER 08:23 → MS 09:40
PROVIDERS: Nurse Practitioner Family; Admitting Provider Internal Medicine; Emergency Provider Student in an Organized Health Care Education/Training Program; Visit Provider Internal Medicine
DX: N17.9 Acute kidney failure, unspecified (principal); N20.0 Calculus of kidney; E86.0 Dehydration; R31.29 Other microscopic hematuria; I10 Essential (primary) hypertension; F17.210 Nicotine dependence, cigarettes, uncomplicated; R11.2 Nausea with vomiting, unspecified; F31.9 Bipolar disorder, unspecified; Z79.899 Other long term (current) drug therapy; F19.90 Other psychoactive substance use, unspecified, uncomplicated
CPT/HCPCS: 00123; 36415; 80048; 80053; 80307; 82306; 82550; 83690; 87637; 96361; 96372; 96374; 99285; 74176; 81003; 81015; 82607; 82728; 82746; 83540; 83550; 83735; 85025; 87086; 99222; 99239; J1644; J2405; J3475

== ENCOUNTER 2023-12-14 12:04 | Emergency (ER) | payer MEDICARE, MEDICAID, SELFPAY ==
[2023-12-14 12:07] VITALS: BP 165/127; PULSE 100; RESP 16; TEMP 36.6; O2SAT 100
[2023-12-14 13:18] LABS: Abs Immature Grans 0.02 10^3/uL (0.0-0.06); Absolute Basophil Count 0.04 10^3/uL (0.0-0.2); Absolute Eosinophil Count 0.02 10^3/uL (0.0-0.7); Absolute Lymphocyte Count 1.86 10^3/uL (1.2-3.4); Absolute Monocyte Count 0.81 10^3/uL (0.1-0.8); Absolute Neutrophil Count 3.61 10^3/uL (1.2-6.7); Basophils % 0.6; Eosinophils % 0.3; HCT 50.3 % (40.0-50.0); HGB 16.3 g/dL (13.5-17.5); Immature Grans % 0.3; Lymphocytes % 29.2; MCH 23.9 pg (27.0-33.0); MCHC 32.4 % (32.0-36.0); MCV 74 fL (80-95); MPV 10.3 fL (8.0-11.0); Monocytes % 12.7; Neutrophils % 56.9; Platelet Count 334 10^3/uL (130-400); RBC 6.82 10^6/uL (4.36-5.78); RDW 17.5 % (11.8-14.1); RDW-SD 41.2 fL; WBC 6.36 10^3/uL (4.4-10.8)
[2023-12-14 13:35] LABS: ALT 30 U/L (16-63); AST 53 U/L (15-37); Albumin 4.2 g/dL (3.4-5.0); Alkaline Phosphatase 118 U/L (46-116); BUN 56 mg/dL (7-18); Bilirubin, Total 1.6 mg/dL (0.2-1.0); CREATININE 2.5 mg/dL (0.70-1.30); Calcium 10.1 mg/dL (8.5-10.1); Chloride 93 mmol/L (98-107); Estimated GFR 32.29 (mL/min/1.73m2); Glucose 115 mg/dL (74-106); Lipase 26 U/L (16-77); Magnesium 2.9 mg/dL (1.8-2.4); Potassium 5.5 mmol/L (3.5-5.1); Sodium 134 mmol/L (136-145); Total Protein 10.6 g/dL (6.4-8.2)
[2023-12-14 13:41] LABS: Anisocytosis 1+; Diff Comment RBC Morph Reviewed; Microcytosis 1+
--- NOTE | 2023-12-14 13:45 | RT.EKG_ITS ---
APPROVED REPORT Exam: Resting ECG Reason for Exam: weakness Patient Location: E HR:93 bpm ECG Measurements Heart Rate 93 AXIS DE 140 P 77 QRSd 93 QRS 56 QT 354 T 31 QTc 441 Conclusion Sinus rhythm...normal P axis, V-rate 60- 99 Left ventricular hypertrophy...multiple LVH criteria ST elev, probable normal early repol pattern...ST elevation, age<55
[2023-12-14 14:21] LABS: Creatine Kinase 220 U/L (39-308)
[2023-12-14] MEDS: LORazepam 2 MG/ML VIAL 1 MG IVP (14:31)
[2023-12-14] MEDS: Ondansetron 4 MG/2 ML VIAL IVP (14:31)
[2023-12-14] MEDS: Normal Saline 1,000 ML 1000 ML IV ×2 (14:33→17:14)
--- NOTE | 2023-12-14 14:56 | ED.GENADUL_ITS ---
Discharge Plan Disposition Patient Disposition: Home Condition: Stable Discharge Details Clinical Impression: Acute kidney injury, Acute dehydration Primary Care Provider: Unknown,Unknown ED Provider: Joselyn Guerra Home Meds and New Rx's Prescriptions: New ondansetron 4 mg tablet,disintegrating 4 mg PO Q8H PRN PRN5 Days Qty: 15 0RF Discharge Instructions Instructions: Dehydration (ED) Additional Instructions: Take the Zofran as needed for nausea and vomiting Increase fluids, stay away from meat products until you are able to tolerate bananas, rice, applesauce, toast, putting, Jell-O, lauryn cristobal, apple juice, you may take the Zofran every 8 hours Please follow-up with primary care physician to establish care with a counselor as well and psychiatrist. A referral has been made for urgent follow up. I recommend that you have your kidney function rechecked within the next week and discuss restarting blood pressure medications. Please return should you have uncontrollable vomiting, decreased urine output, new or worsening complaints You will need to continue to hydrate at home, at least eight 8 ounce glasses of water daily, should you be unable to consume this amount of fluid, please return for reassessment Discharge Data Discharge Date/Time-TO BE ENTERED AT DEPARTURE: 12/14/23 18:35 HPI General Date/Time Provider Initiated Documentation: 12/14/23 12:28 . HPI Narrative: This 43-year-old male presents with report of nausea and vomiting for the last 3 days, history of similar symptoms in the past. Unsure as to the precipitating factor. States he has some cramping in his abdomen. Denies chest pain or shortness of breath. Denies blood in vomitus. Denies any diarrhea. Denies any new medications. Related Data Home Medications Medication Instructions Recorded Confirmed ondansetron 4 mg disintegrating 4 mg PO Q8H PRN PRN 5 days #15 tabs 12/14/23 tablet Previous Rx's Medication Instructions Recorded ondansetron 4 mg disintegrating 4 mg PO Q8H PRN PRN 5 days #15 tabs 12/14/23 tablet Allergies Allergy/AdvReac Type Severity Reaction Status Date / Time lisinopril Allergy Severe Swelling/Ed Unverified 12/14/23 12:10 reagan General Stated Complaint: Nausea/Vomit/Diar SERA: 4 Course Vital Signs Vital signs: Vital Signs Temperature 36.6 C 12/14/23 12:07 Pulse 100 H 12/14/23 12:07 Respiratory Rate 16 12/14/23 12:07 Blood Pressure 165/127 H 12/14/23 12:07 Pulse Oximetry 100 12/14/23 12:07 Temperature 36.6 C 12/14/23 12:07 Pulse 100 H 12/14/23 12:07 Respiratory Rate 16 12/14/23 12:07 Respiratory Effort Normal 12/14/23 12:11 Blood Pressure 165/127 H 12/14/23 12:07 Pulse Oximetry 100 12/14/23 12:07 Oxygen Delivery Method Room Air 12/14/23 12:07 Oxygen Flow Rate 0 12/14/23 12:07 Pain Level 2 12/14/23 12:07 Comment Abdominal ache from vomiting. 12/14/23 12:07 Lab/Test Results Lab/Test Results: Laboratory Tests Range/Units 12/14/23 13:10 WBC (4.4-10.8) 10^3/uL 6.36 RBC (4.36-5.78) 10^6/uL 6.82 H Hgb (13.5-17.5) g/dL 16.3 Hct (40.0-50.0) % 50.3 H MCV (80-95) fL 74 L MCH (27.0-33.0) pg 23.9 L MCHC (32.0-36.0) % 32.4 RDW (11.8-14.1) % 17.5 H Plt Count (130-400) 10^3/uL 334 MPV (8.0-11.0) fL 10.3 Immature Gran % 0.3 Neutrophils % 56.9 Lymphocytes % 29.2 Monocytes % 12.7 Eosinophils % 0.3 Basophils % 0.6 Nucleated RBC % (0.0-0.3) % 0.0 Absolute Neutrophils (1.2-6.7) 10^3/uL 3.61 Absolute Lymphocytes (1.2-3.4) 10^3/uL 1.86 Absolute Monocytes (0.1-0.8) 10^3/uL 0.81 H Absolute Eosinophils (0.0-0.7) 10^3/uL 0.02 Absolute Basophils (0.0-0.2) 10^3/uL 0.04 RBC Morphology See Below Anisocytosis 1+ Microcytosis 1+ Sodium (136-145) mmol/L 134 L Potassium (3.5-5.1) mmol/L 5.5 H Chloride (98-107) mmol/L 93 L Carbon Dioxide (21.0-32.0) mmol/L 34.0 H Anion Gap (3-11) mmol/L 7.0 BUN (7-18) mg/dL 56 H Creatinine (0.70-1.30) mg/dL 2.5 H Est GFR (CKD-EPI 2020) (mL/min/1.73m2) 32.29 Glucose (74-106) mg/dL 115 H Calcium (8.5-10.1) mg/dL 10.1 Magnesium (1.8-2.4) mg/dL 2.9 H Total Bilirubin (0.2-1.0) mg/dL 1.6 H AST (15-37) U/L 53 H ALT (16-63) U/L 30 Alkaline Phosphatase (46-116) U/L 118 H Creatine Kinase (39-308) U/L 220 Total Protein (6.4-8.2) g/dL 10.6 H Albumin (3.4-5.0) g/dL 4.2 Lipase (16-77) U/L 26 Medical Decision Making 43-year-old male with history of agoraphobia presenting with nausea and vomiting Denies any recent illicit drug use, no appreciated abdominal tenderness, fully alert and oriented, moist mucous membranes, labs are markedly abnormal with acute kidney injury secondary to likely dehydration, suspect to be prerenal Able to tolerate p.o., will receive 2 L of fluid and drinking fluids in the room with popsicles and chicken noodle soup Will likely be stable to discharge home, will need close outpatient follow-up with his primary care physician with repeat evaluation of his kidney function Will transition care pending repeat BMP to reevaluate potassium and creatinine for improvement, if these are improved, I think patient stable for discharge home, he does have evidence of LVH on his EKG and initially was hypertensive however his blood pressure has improved to 124/80 and so I be hesitant to restart this without PCP involvement, and it sounds like he had an appointment which he missed and will call to reschedule this, he should be reevaluated within the next week Patient has remained calm and cooperative throughout his stay, I did give 1 mg of Ativan as he was quite anxious upon initial presentation secondary to agoraphobia He is tolerated this well Care will be transitioned to AE pending repeat BMP and dispo Quality:SDOH Health Related Social Needs: Health related social needs risk of homeless, material hardship, transpo insecurity, personal safety PFSH All Active Problems (Updated 12/14/23 @ 16:10 by MICHELLE Encarnacion) Acute dehydration (Acute) Acute kidney injury (Acute) Medical History (Updated 12/14/23 @ 16:10 by MICHELLE Encarnacion) Kidney stones Social History Smoking/Tobacco Use Status: Former Tobacco Use Smoking risk assessment performed?: Yes Alcohol Intake: current Alcohol Intake frequency: a few times a week Substance use type: does not use Housing: other Do you feel safe at home: Yes Additional Social history: see downtime note Sign Out Sign Out Data: Sign Out Comment: pending bmp/ k and creat recheck Last updated by Keely Junior PA at 12/14/23 16:19
[2023-12-14 15:00] VITALS: PULSE 85; RESP 16; O2SAT 96
[2023-12-14 15:07] LABS: Bilirubin Negative (Negative); Blood Negative (Negative); Clarity Clear (Clear); Glucose Negative (Negative); Ketones Negative (Negative); Leukocyte Esterase Negative (Negative); Nitrite Negative (Negative); Specific Gravity >= 1.030 (1.005-1.025); Urobilinogen 0.2 mg/dL (Up to 0.2); pH 5.5 (5-8)
[2023-12-14 15:18] LABS: Bacteria Negative HPF (Negative); Casts Negative LPF (Negative); Crystals Negative HPF (Negative); Epithelial Cells Rare HPF (Negative); Mucus Negative (Negative); RBC 0-2 HPF (0-2); WBC 0-2 HPF (0-5)
[2023-12-14 15:19] LABS: C & S Indicated? No
[2023-12-14 15:53] VITALS: BP 144/78; PULSE 85; RESP 16; TEMP 36.6; O2SAT 96
--- NOTE | 2023-12-14 16:56 | ED.PROG_ITS ---
Date of service: 12/14/23 Time of Service: 15:30 Medical Decision Making Received report from iraj Encarnacion. I did interview and perform physical exam and patient myself. Allan is a 43-year-old male who presented to the emergency department today for 3 days of nausea/vomiting. He reports that he was unable to tolerate any p.o. during this time, vomiting up everything he tried to eat or drink. He did have 1 episode of diarrhea yesterday. No blood in stool or emesis. He says that he has a history of similar stomach problems in the past, unknown etiology. Physical exam reassuring. Patient is alert and oriented, no acute distress. Moist mucous membranes. Easy work of breathing. Abdomen soft, nondistended, nontender to palpation. While in the emergency department he was able to tolerate p.o., also received 2 L normal saline IV. Initial labs were remarkable for TAN, with hyperkalemia with potassium 5.5 and elevated creatinine 2.5 with BUN 656, consistent with prerenal azotemia. Repeat labs performed at 1700. Creatinine significantly improved, 1.9. Hyperkalemia has resolved. Discussed discharge instructions with patient. He reports he has not been taking his blood pressure medication in quite a while (he had been prescribed ARB). As he is recovering from kidney injury and is normotensive in the emergency department, recommend follow-up with PCP for reevaluation of kidney function and initiation of antihypertensives. Reviewed red flags indicating need for return to emergency care. Referral made to for establishing care with PCP by air conditioning unit assembler. He is agreeable with plan of care. Lab Data Labs: Laboratory Tests Range/Units 12/14/23 12/14/23 12/14/23 13:10 14:55 17:00 WBC (4.4-10.8) 10^3/uL 6.36 RBC (4.36-5.78) 10^6/uL 6.82 H Hgb (13.5-17.5) g/dL 16.3 Hct (40.0-50.0) % 50.3 H MCV (80-95) fL 74 L MCH (27.0-33.0) pg 23.9 L MCHC (32.0-36.0) % 32.4 RDW (11.8-14.1) % 17.5 H Plt Count (130-400) 10^3/uL 334 MPV (8.0-11.0) fL 10.3 Immature Gran % 0.3 Neutrophils % 56.9 Lymphocytes % 29.2 Monocytes % 12.7 Eosinophils % 0.3 Basophils % 0.6 Nucleated RBC % (0.0-0.3) % 0.0 Absolute Neutrophils (1.2-6.7) 10^3/uL 3.61 Absolute Lymphocytes (1.2-3.4) 10^3/uL 1.86 Absolute Monocytes (0.1-0.8) 10^3/uL 0.81 H Absolute Eosinophils (0.0-0.7) 10^3/uL 0.02 Absolute Basophils (0.0-0.2) 10^3/uL 0.04 RBC Morphology See Below Anisocytosis 1+ Microcytosis 1+ Sodium (136-145) mmol/L 134 L 134 L Potassium (3.5-5.1) mmol/L 5.5 H 3.8 D Chloride (98-107) mmol/L 93 L 99 Carbon Dioxide (21.0-32.0) mmol/L 34.0 H 31.4 Anion Gap (3-11) mmol/L 7.0 3.6 BUN (7-18) mg/dL 56 H 48 H Creatinine (0.70-1.30) mg/dL 2.5 H 1.9 H Est GFR (CKD-EPI 2020) (mL/min/1.73m2) 32.29 44.89 Glucose (74-106) mg/dL 115 H 107 H Calcium (8.5-10.1) mg/dL 10.1 8.3 L Magnesium (1.8-2.4) mg/dL 2.9 H Total Bilirubin (0.2-1.0) mg/dL 1.6 H AST (15-37) U/L 53 H ALT (16-63) U/L 30 Alkaline Phosphatase (46-116) U/L 118 H Creatine Kinase (39-308) U/L 220 Total Protein (6.4-8.2) g/dL 10.6 H Albumin (3.4-5.0) g/dL 4.2 Lipase (16-77) U/L 26 Urine Color (Yellow) Yellow Urine Clarity (Clear) Clear Urine pH (5-8) 5.5 Ur Specific [place] (1.005-1.025) >= 1.030 H Urine Protein (Neg-Trace) mg/dL 100 H Urine Ketones (Negative) mg/dL Negative Urine Blood (Negative) Negative Urine Nitrite (Negative) Negative Urine Bilirubin (Negative) Negative Urine Urobilinogen (Up to 0.2) mg/dL 0.2 Ur Leukocyte Esterase (Negative) Negative Urine RBC (0-2) HPF 0-2 Urine WBC (0-5) HPF 0-2 Ur Epithelial Cells (Negative) HPF Rare Urine Crystals (Negative) HPF Negative Urine Bacteria (Negative) HPF Negative Urine Casts (Negative) LPF Negative Urine Mucus (Negative) Negative Ur Culture Indicated? No Urine Glucose (Negative) mg/dL Negative Quality:SDOH Health Related Social Needs: Health related social needs risk of homeless, material hardship, transpo insecurity, personal safety Sign Out Sign Out Data: Sign Out Comment: pending bmp/ k and creat recheck Last updated by Keely Junior PA at 12/14/23 16:19 Discharge Plan Disposition Patient Disposition: Home Condition: Stable Discharge Details Clinical Impression: Acute kidney injury, Acute dehydration Primary Care Provider: Unknown,Unknown ED Provider: Joselyn Guerra Home Meds and New Rx's Prescriptions: New ondansetron 4 mg tablet,disintegrating 4 mg PO Q8H PRN PRN5 Days Qty: 15 0RF Discharge Instructions Instructions: Dehydration (ED) Additional Instructions: Take the Zofran as needed for nausea and vomiting Increase fluids, stay away from meat products until you are able to tolerate bananas, rice, applesauce, toast, putting, Jell-O, lauryn cristobal, apple juice, you may take the Zofran every 8 hours Please follow-up with your primary care physician to establish care with a counselor as well and psychiatrist Please return should you have new or worsening complaints You will need to continue to hydrate at home, at least eight 8 ounce glasses of water daily, should you be unable to consume this amount of fluid, please return for reassessment
[2023-12-14 17:14] VITALS: BP 122/80; PULSE 80; RESP 16; O2SAT 98
[2023-12-14 17:21] LABS: Anion Gap 3.6 mmol/L (3-11); BUN 48 mg/dL (7-18); CO2 31.4 mmol/L (21.0-32.0); CREATININE 1.9 mg/dL (0.70-1.30); Calcium 8.3 mg/dL (8.5-10.1); Chloride 99 mmol/L (98-107); Estimated GFR 44.89 (mL/min/1.73m2); Glucose 107 mg/dL (74-106); Potassium 3.8 mmol/L (3.5-5.1); Sodium 134 mmol/L (136-145)
--- NOTE | 2023-12-14 17:42 | NUR.NOTE ---
Nursing Note: PT needs PCP to establish care, BP management & kidney function recheck. Denise, ED
[2023-12-14 18:21] VITALS: BP 174/98; PULSE 89; TEMP 36.3
[2023-12-14] MEDS: Ondansetron O.D.T. 4 MG TABEF, 3 TABS/BTL PO (18:34)
== END 2023-12-14 18:35 | disposition home or self-care (01) ==
PROVIDERS: Physician Assistant; Emergency Provider Nurse Practitioner Family
DX: N17.9 Acute kidney failure, unspecified (principal); E86.0 Dehydration; E87.5 Hyperkalemia; E79.89 Other specified disorders of purine and pyrimidine metabolism; Z87.891 Personal history of nicotine dependence
CPT/HCPCS: 00123; 80048; 80053; 82550; 83690; 93005; 96361; 96374; 96375; 99284; 81003; 81015; 83735; 85025; 93010; J2060; J2405

== ENCOUNTER 2024-02-28 21:08 | Emergency (ER) | payer MEDICARE, MEDICAID, SELFPAY ==
[2024-02-28 21:10] VITALS: BP 176/120; PULSE 110; RESP 18; TEMP 36.5
[2024-02-28 21:41] VITALS: BP 154/112
--- NOTE | 2024-02-28 22:40 | ED.GENADUL_ITS ---
Discharge Plan Discharge Details Chief Complaint: PsychEval Clinical Impression: Suicidal ideation, Depression, Homicidal ideation Primary Care Provider: Unknown,Unknown ED Provider: Inderjit Arthur Home Meds and New Rx's Prescriptions: No Action No Known Home Meds HPI General Date/Time Provider Initiated Documentation: 02/28/24 21:54 . HPI Narrative: This is a pleasant 43-year-old -[place]ian male with a past medical history of hypertension, bipolar, previous use of cocaine and rarely fentanyl, who presents today for evaluation of depression. Patient states that he has a history of mental illness, and depression however it has been notably worse over the last few weeks. He has thought about wanting to , but is not entirely sure how he would do it. He also verbalizes that he has thoughts of harming others, and this worries him which is why he is here. He denies any auditory or visual hallucinations. He denies any headache chest pain shortness of breath. He states that he has been using cocaine still, last time was this past week. No other complaints at this time. No other modifying factors. Related Data Home Medications Medication Instructions Recorded Confirmed Unknown [No Known Home Meds] 02/28/24 02/28/24 Allergies Allergy/AdvReac Type Severity Reaction Status Date / Time lisinopril Allergy Severe Swelling/Ed Unverified 02/28/24 21:15 reagan General Stated Complaint: PsychEval SERA: 2 Review of Systems All systems reviewed & are unremarkable except as noted in HPI and below Exam Narrative Exam Narrative: 1.Const: Well-nourished, Well-developed, appearing stated age 2.Eyes: PERRL, no conjunctival injection, and symmetrical lids. 3.ENT: Atraumatic external nose and ears. Moist MM. Neck: Symmetric, trachea midline, No thyromegaly. 4.CVS: +S1/S2, No murmurs or gallops. Peripheral pulses 2+ and equal in all extremities. Brisk capillary refill in all extremities. 5.RESP: Unlabored respiratory effort. Clear to auscultation bilaterally. No wheezes rales or rhonchi 6.GI: Soft, Nontender/Nondistended, No hepatosplenomegaly. No guarding or rebound. 7.MSK: Normocephalic/Atraumatic, Extremities w/o deformity or ttp No cyanosis or clubbing, Normal movement of all extremities 8.Skin: Warm, Dry. No rashes or lesions. 9.Neuro: head of sales promotion II-XII grossly intact. Sensation grossly intact, no focal neurologic deficits. 10.Psych: (AAO) x3. Appropriate mood and affect Course Vital Signs Vital signs: Vital Signs Temperature 36.5 C 02/28/24 21:10 Pulse 110 H 02/28/24 21:10 Respiratory Rate 18 02/28/24 21:10 Blood Pressure 176/120 H 02/28/24 21:10 Temperature 36.5 C 02/28/24 21:10 Pulse 110 H 02/28/24 21:10 Respiratory Rate 18 02/28/24 21:10 Blood Pressure 154/112 H 02/28/24 21:41 Pain Level 0 02/28/24 21:10 Medical Decision Making This is a pleasant 43-year-old -[place]vian male with a past medical history of hypertension, bipolar, previous use of cocaine and rarely fentanyl, who presents today for evaluation of depression. Patient states that he has a history of mental illness, and depression however it has been notably worse over the last few weeks. He has thought about wanting to , but is not entirely sure how he would do it. He also verbalizes that he has thoughts of harming others, and this worries him which is why he is here. He denies any auditory or visual hallucinations. He denies any headache chest pain shortness of breath. He states that he has been using cocaine still, last time was this past week. No other complaints at this time. No other modifying factors. Physical exam demonstrates a well-appearing male, no no acute distress. Mildly hypertensive. I am concerned with his story, and his personal concerns. I do feel that he is at risk for potential self-harm. We will medically clear, and enlist the help of her mental health advocates. He will be transition to blue scrubs, he will be given a one-to-one, will monitor closely 7 AM Patient has been medically cleared, he has been seen and evaluated by mental health, they recommend inpatient treatment. Patient agrees. Patient will be transition to zone B. Quality:SDOH Health Related Social Needs: Health related social needs risk of homeless, material hardship, transpo insecurity, personal safety PFSH All Active Problems (Updated 02/29/24 @ 07:10 by Inderjit Arthur DO) Homicidal ideation (Acute) Depression (Chronic) Suicidal ideation (Acute) Acute dehydration (Acute) Acute kidney injury (Acute) Medical History Kidney stones Social History Smoking/Tobacco Use Status: Former Tobacco Use Smoking risk assessment performed?: Yes Alcohol Intake: current Alcohol Intake frequency: a few times a week Substance use type: does not use Housing: other Do you feel safe at home: Yes Additional Social history: see downtime note
[2024-02-28 22:53] LABS: Abs Immature Grans 0.01 10^3/uL (0.0-0.06); Absolute Basophil Count 0.04 10^3/uL (0.0-0.2); Absolute Eosinophil Count 0.08 10^3/uL (0.0-0.7); Absolute Lymphocyte Count 1.75 10^3/uL (1.2-3.4); Absolute Monocyte Count 0.44 10^3/uL (0.1-0.8); Absolute Neutrophil Count 2.36 10^3/uL (1.2-6.7); Basophils % 0.9 %; Eosinophils % 1.7 %; HCT 40.7 % (40.0-50.0); HGB 13.1 g/dL (13.5-17.5); Immature Grans % 0.2 %; Lymphocytes % 37.4 %; MCH 23.9 pg (27.0-33.0); MCHC 32.2 % (32.0-36.0); MCV 74 fL (80-95); MPV 10.6 fL (8.0-11.0); Monocytes % 9.4 %; Neutrophils % 50.4 %; Platelet Count 221 10^3/uL (130-400); RBC 5.47 10^6/uL (4.36-5.78); RDW 15.5 % (11.8-14.1); RDW-SD 41.8 fL; WBC 4.68 10^3/uL (4.4-10.8)
[2024-02-28 23:07] LABS: Microcytosis 1+
[2024-02-28 23:16] LABS: ALT 23 U/L (16-63); AST 17 U/L (15-37); Albumin 3.2 g/dL (3.4-5.0); Alkaline Phosphatase 93 U/L (46-116); Anion Gap 4.7 mmol/L (3-11); BUN 9 mg/dL (7-18); Bilirubin, Total 0.4 mg/dL (0.2-1.0); CO2 33.3 mmol/L (21.0-32.0); CREATININE 1.2 mg/dL (0.70-1.30); Calcium 8.9 mg/dL (8.5-10.1); Chloride 105 mmol/L (98-107); Estimated GFR 77.92 (mL/min/1.73m2); Glucose 117 mg/dL (74-106); Potassium 3.5 mmol/L (3.5-5.1); Sodium 143 mmol/L (136-145); TSH (W/Ref FT4) 1.01 uIU/mL (0.36-3.74); Total Protein 7.5 g/dL (6.4-8.2)
[2024-02-28 23:20] LABS: Salicylate < 2.8 mg/dL (<2.8)
[2024-02-28 23:21] LABS: Acetaminophen < 2 ug/mL (10-30)
[2024-02-28 23:22] LABS: ETHANOL BLOOD < 3.0 mg/dL (<10)
--- NOTE | 2024-02-29 00:29 | PDOC.MHCN_ITS ---
Date of service: 02/29/24 Time of Service: 00:10 PHQ-9 Over the last 2 weeks, how often have you been bothered by any of the following problems? 1. Little interest or pleasure in doing things: nearly every day 2. Feeling down, depressed, or hopeless: nearly every day 3. Trouble falling or staying asleep, or sleeping too much: nearly every day 4. Feeling tired or having little energy: nearly every day 5. Poor appetite or overeating: nearly every day 6. Feeling bad about yourself - or that you are a failure or have let yourself and your family down: nearly every day 7. Trouble concentrating on things, such as reading the newspaper or watching television: nearly every day 8. Moving or speaking so slowly that other people could have noticed? - Or the opposite - being so fidgety or restless that you have been moving around a lot more than usual: nearly every day 9. Thoughts that you would be better off or of hurting yourself in some way: nearly every day Total score: 27 If you checked off any problems, how difficult have these problems made it for you to do your work, take care of things at home, or get along with other people?: extremely difficult PHQ-9 Results: Positive Source: Developed by Drs. Trell Soares, Rica Steele, Calin James and colleagues, with an educational abhijit from [employer]. Suicide Severity Rate CSSRS Have you wished you were or wished you could go to sleep and not wake up?: Yes Have you actually had any thoughts of killing yourself?: Yes CSSRS2 Have you been thinking about how you might do this?: Yes Have you had these thoughts and had some intention of acting on them?: Yes Have you started to work out or worked out the details of how to kill yourself? Do you intend to carry out this plan?: No CSSRS3 Have you ever done anything, started to do anything or prepared to do anything to end your life?: Yes CSSRS4 Was this within the past three months?: No Screening Score Total Score: 6 Screening: Positive Mental Health Emergency Note Release [facility] release signed:: Yes Reason for Visit Allan presents to [facility] due to homicidal and suicidal ideation as well as thoughts of wanting to give up. In the last 2 weeks has the pt presented for ES prior to today?: Unknown Client Information Client is: Adult Outpatient Well Housed: No,status: Homeless Unstable housing Non Suicidal Self Injury Current: No History: No Safety Risk/Harm to Self or Others Current Ideation to Harm Self or Others: Yes to self. (Client reports having thoughts of attempting to end his life via overdose or shotgun.) Intent: no, has no intent. Plan: yes,has a plan. and to others. (Client reports he thinks about harming others every single day, but does not have a plan or intention at this time. ) Intent: No Plan: no, does not have a plan. History of becoming violent with another person(any age): yes,history of violence with others. Experienced legal problems due to harming another person: No Risk: Does risk to harm exist?: yes. Access to means: No. Risk: Moderate Risk Duty to warn indicated: No Asssessment/Mental Status Appearance: Unremarkable Attitude: Cooperative Behavior: Unremarkable Speech: Normal Affect: Cogruent with mood Mood: Stressed, Depressed, Anxious and Irritable Thought process: Flight of ideas and Tangential Hallucinations: No evidence Delusions: No evidence Attention: Unremarkable Perception: Not impaired Orientation: Fully orientated Memory: Intact Insight: Poor Judgement: Poor Neurovegetative Symptoms Sleep: Decrease Appetitie: No change Interests: No change Energy: No change Libido: Not applicable Substance Use: Do you use nicotine?: Yes Have you used substances in the last 7 days?: No Additional Issues: Assaultive/Threatening Behavior: No Medical Concerns: No Client engaged in active self harm w/weapon: No Threatening to run away: No Child reported abuse/neglect: No Voluntarily presenting for services: Yes Domestic violence is a concern: No Extreme Psychosis or extreme behavior is present: Yes Impression Allan presents to this commercial lines underwriter laying in his hospital bed, in paper scrubs, wrapped in a blanket. Allan reports the same thing has been going on for awhile, he has recurring thoughts that cause anxiety, social anxiety, and panic attacks. Allan reports he has lost maral and does not believe anything will get better. Allan reports he likes to isolate and be alone and this is how he tha with things. Allan reports he has social phobia and feels ashamed of this. IN addition Allan reports he has a lot of anger and thinks about hurting others. Allan disclosed he moved from [place], [place] because he kept thinking of harming others and felt like he was going to attempt to harm someone else. Allan told this commercial lines underwriter she would not understand why and did not disclose further. Allan reports he thinks about harming others every single day, I never get a break from it. Allan reports that he also has thoughts of harming himself and has thought of a few different plans. Allan reports he used to think about shooting himself but about a year ago he overdosed on fentanyl,, non intentional and almost and realized how easy that could be. Allan reports he is holding on, but unsure why. Allan also talked about him holding on for the want to harm others. This commercial lines underwriter and Allan discussed finding his purpose in life again, and holding on for a reason, and that treatment could help. Allan reports he wants to go to inpatient treatment especially if it is this commercial lines underwriter's clinical opinion. This commercial lines underwriter observed Allan not showing his face on the Zoom, laying in the bed, fidgeting during assessment. This commercial lines underwriter observed Allan looking for more guidance during the decision of treatment as he truly does not know what will help him in life right now.? Allan is a client in need of short term inpatient treatment. Plan/Disposition Recommended Disposition: Hospitalization (Referrals will be sent out once medical is faxed to [facility]) facilities contacted. Plan: Allan is seeking voluntary inpatient treatment. Allan will be seen 1x daily until placed. Person reported agreement to plan: Yes Reports/communication Outcome discussed with: ED/Personnel
[2024-02-29 00:33] LABS: *AMPHETAMINES SCREEN URINE Negative (Negative); *BARBITURATES SCREEN URINE Negative (Negative); *BENZODIAZEPINES SCREEN URINE Negative (Negative); Cannabinoids THC Positive (Negative); Cocaine Screen,Urine Positive (Negative); METHADONE URINE SCREEN Negative (Negative); OPIATES URINE SCREEN Negative (Negative)
[2024-02-29 00:34] LABS: Tricyclic Antidepressants Negative (Negative)
[2024-02-29 07:35] VITALS: BP 165/128; PULSE 93; RESP 18; O2SAT 99
[2024-02-29] MEDS: Losartan 25 MG TAB PO (07:56)
--- NOTE | 2024-02-29 09:09 | PDOC.CMSAFE ---
Date of service: 02/29/24 Time of Service: 09:09 Care Management Safety Plan Status Status: Voluntary Reason for Wait Reason for Wait: Inpatient Admission Safety Plan Safety Plan: VOLUNTARY FOR INPATIENT PSYCHIATRIC STABILIZATION.? Patient is appropriate in all interactions since arriving at [facility]; Pt has demonstrated appropriate coping and communication skills, has articulated his needs and concerns and is fully engaged during staff interactions. Safety plan has been established with patient, and care team, to adhere to patient goals, identify restrictions based on behavioral status, address nutrition, and determine allowed personal belongings, tools for hygiene and personal care. Determine level of activity including ambulation, level of supervision, visitors, and determine privileges based on behaviors and level of engagement by pt. SAFETY PLAN: 1. Will remain on suicide precautions, in paper clothes 2. Will remain in Zone B under direct supervision of one-on-one staff at all times provided by [employer]; MEHUL, PATIENT REPRESENTATIVE mainstreaming facilitator. 3. May have paper cups, plates, finger foods as well as a cardboard spoon with which to eat meals. 4. Follow [facility] Management of the Admitted Behavioral Health Patient policy. 5. Shower available in Zone B without restriction. 6. Personal belongings-soft items permitted at RN discretion. 7. Visitors- parents permitted, at RN discretion. 8. Activities: soft cart items approved per RN discretion. 9.? Bathroom available in Zone B without restriction. 10. Phone: incoming/outgoing calls limited to [facility] cordless phone at RN discretion. Due to VOLUNTARY status, if patient wishes to leave [facility], staff will contact [facility] Crisis Screener ([phone]) and Census Enumerator ([phone]) as soon as possible. In the event of elopement, notify [facility] Police ([phone]). Patient is currently voluntarily at [facility] and seeking inpatient admission when a bed becomes available. [facility] Frontline Loan Underwriter will continue seeking placement. Please contact the Census Enumerator ([phone]) and [facility] Loan Underwriter ([phone]) for any needed changes in the Safety Plan. Safety plan has been provided to interdepartmental care team.
--- NOTE | 2024-02-29 09:45 | W.EDPROG ---
Date of service: 02/29/24 Time of Service: 09:45 Medical Decision Making Care was signed out by Dr. Arthur, please see his documentation regarding initial ED presentation course. Plan at signout was to await voluntary inpatient psychiatric placement. Patient has been medically screened and deemed stable for psychiatric treatment. Losartan restarted for elevated blood pressure. I received call from Monalisa Quijano, nurse practitioner at [facility]. Discussed ED presentation course, she will except the patient in transfer. Lab Data Lab results reviewed: Yes I reviewed the patient's lab results. Labs: Laboratory Tests Range/Units 02/28/24 02/29/24 22:45 00:15 WBC (4.4-10.8) 10^3/uL 4.68 RBC (4.36-5.78) 10^6/uL 5.47 Hgb (13.5-17.5) g/dL 13.1 L Hct (40.0-50.0) % 40.7 MCV (80-95) fL 74 L MCH (27.0-33.0) pg 23.9 L MCHC (32.0-36.0) % 32.2 RDW (11.8-14.1) % 15.5 H Plt Count (130-400) 10^3/uL 221 MPV (8.0-11.0) fL 10.6 Immature Gran % % 0.2 Neutrophils % % 50.4 Lymphocytes % % 37.4 Monocytes % % 9.4 Eosinophils % % 1.7 Basophils % % 0.9 Nucleated RBC % (0.0-0.3) % 0.0 Absolute Neutrophils (1.2-6.7) 10^3/uL 2.36 Absolute Lymphocytes (1.2-3.4) 10^3/uL 1.75 Absolute Monocytes (0.1-0.8) 10^3/uL 0.44 Absolute Eosinophils (0.0-0.7) 10^3/uL 0.08 Absolute Basophils (0.0-0.2) 10^3/uL 0.04 Microcytosis 1+ Sodium (136-145) mmol/L 143 Potassium (3.5-5.1) mmol/L 3.5 Chloride (98-107) mmol/L 105 Carbon Dioxide (21.0-32.0) mmol/L 33.3 H Anion Gap (3-11) mmol/L 4.7 BUN (7-18) mg/dL 9 Creatinine (0.70-1.30) mg/dL 1.2 Est GFR (CKD-EPI 2020) (mL/min/1.73m2) 77.92 Glucose (74-106) mg/dL 117 H Calcium (8.5-10.1) mg/dL 8.9 Total Bilirubin (0.2-1.0) mg/dL 0.4 AST (15-37) U/L 17 ALT (16-63) U/L 23 Alkaline Phosphatase (46-116) U/L 93 Total Protein (6.4-8.2) g/dL 7.5 Albumin (3.4-5.0) g/dL 3.2 L TSH (0.36-3.74) uIU/mL 1.01 Salicylates (<2.8) mg/dL < 2.8 Urine Opiates Screen (Negative) Negative Urine Methadone Screen (Negative) Negative Acetaminophen (10-30) ug/mL < 2 Ur Barbiturates Screen (Negative) Negative Ur Tricyclics Screen (Negative) Negative Ur Amphetamines Screen (Negative) Negative U Benzodiazepines Scrn (Negative) Negative Urine Cocaine Screen (Negative) Positive A Ur THC Screen (Negative) Positive A Ethyl Alcohol (<10) mg/dL < 3.0 Quality:SDOH Health Related Social Needs: Health related social needs risk of homeless, material hardship, transpo insecurity, personal safety Sign Out Sign Out Data: Sign Out Comment: Depression, suicidality, homicidality, has a plan, here voluntarily, pending placement, no baseline medications. Last updated by Inderjit Arthur DO at 02/29/24 07:21 Discharge Plan Disposition Patient Disposition: Psychiatric Hospital/Unit Specific Psychiatric Facility: [facility] Condition: Serious Discharge Details Clinical Impression: Suicidal ideation, Depression, Homicidal ideation ED Provider: Bridger Lee Home Meds and New Rx's Prescriptions: New losartan 25 mg tablet 25 mg PO DAILY Qty: 30 0RF Discharge Data Discharge Date/Time-TO BE ENTERED AT DEPARTURE: 02/29/24 10:33
--- NOTE | 2024-02-29 10:09 | PDOC.CMDIS ---
Date of service: 02/29/24 Time of Service: 10:09 LACE Index Scoring Tool Questions: Length of Stay (in days): 1 Was the patient admitted via the E.D.?: Yes E.D. Visits: 3 Answers: Total Score: 7 Risk of Readmission: Low Risk Care Management Discharge Plan Reason for Hospitalization: SI/HI Discharge Plan: Discharge to [facility] for inpatient psych treatment. Transportation is provided by [facility]. Patient/Family Education Needs: Review discharge instructions and ask me three. SDOH Health Related Social Needs: Health related social needs risk of homeless, material hardship, transpo insecurity, personal safety Disposition Disposition: [facility] via of: [facility] ([facility]
[2024-02-29 10:13] VITALS: BP 146/92; PULSE 88; O2SAT 99
== END 2024-02-29 10:33 ==
PROVIDERS: Student in an Organized Health Care Education/Training Program; Emergency Provider Student in an Organized Health Care Education/Training Program
DX: R45.851 Suicidal ideations (principal); F32.A Depression, unspecified; R45.850 Homicidal ideations; F31.9 Bipolar disorder, unspecified; F14.10 Cocaine abuse, uncomplicated; I10 Essential (primary) hypertension; Z87.891 Personal history of nicotine dependence
CPT/HCPCS: 00123; 80053; 80307; 96127; 99285; 80320; 80329; 84443; 85025